=== PATIENT | male | born 1975 ===

== ENCOUNTER 2017-12-23 20:11 | Emergency (ER) | payer OTHER ==
[~2017-12-23] VITALS: Ht 180.3 cm; Wt 95.3 kg
[2017-12-23 20:26] VITALS: BP 155/96
[2017-12-23] MEDS ORDERED: VALTREX1000 MG PO (21:01)
--- NOTE | 2017-12-23 21:02 | ED SKIN/ALLERGY COMPLAINT ---
History of Present Illness General Chief Complaint: General Adult Stated Complaint: PT PAIN IN THE LIP, Source: patient Exam Limitations: no limitations Vital Signs & Intake/Output Vital Signs & Intake/Output Vital Signs Date Time Temp Pulse Resp B/P B/P Pulse O2 O2 Flow FiO2 Mean Ox Delivery Rate 12/23 2025 96.1 110 18 155/96 98 Room Air ED Intake and Output 12/24 0000 12/23 1200 Intake Total 0 Output Total Balance 0 Intake, Oral 0 Patient 210 lb Weight Weight Estimated Measurement Method Allergies Coded Allergies: silver (Mild, HIVES, RASH 12/23/17) Reconcile Medications Valacyclovir HCl (Valtrex) 1,000 MG TABLET 1 TAB PO DAILY herpes Triage Note: RECEIVED 42 YO MALE C/O DEVELOPING A COLD SORE TO LEFT BOTTOM CORNER OF MOUTH. PT HAD A COLD SORE ONE MONTH AGO. PT VERY CONCERNED BECAUSE HE NEVER HAD A COLD SORE BEFORE AND HE HAS CHILDREN. 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 Triage Nurses Notes Reviewed? yes Onset: Gradual Duration: week(s): Timing: recent history Severity: moderate Location: lip HPI: 42yo male presents to ED complaining of "cold sores" on his lips. Patient states that 3 weeks ago he had a painful lesion to his left lower lip. Patient was seen in a walk-in and told that he had a cold sore and was put on Valtrex. Patient states that this is his first ever and was unsure of how he could've gotten the infection. He is very worried that it was related to counting money. Patient states that a few days ago he dropped a second lesion in the same place as well as a lesion to the upper lip. Patient states that lesions were crusting however he picked off the scabs. No active drainage. Patient states that during his first episode with the cold sore he also was experiencing fever and malaise. The patient is monogamous with his for over 8 years, no known herpes exposure. He denies sore throat, cough, congestion, dyspnea, vomiting. (Candy RENTERIA,Lizet Salcedo) Past History Travel History Traveled to [place] past 21 day No Medical History Any Pertinent Medical History? none Neurological: NONE EENT: NONE Cardiovascular: NONE Respiratory: NONE Gastrointestinal: NONE Hepatic: NONE Renal: NONE Musculoskeletal: NONE Psychiatric: NONE Endocrine: NONE Blood Disorders: NONE Cancer(s): NONE Surgical History Surgical History: non-contributory Psychosocial History What is your primary language Maltese Tobacco Use: Quit >30 days ago Family History Hx Contributory? No (Lizet Ellison) Review of Systems Review of Systems Constitutional: Reports: see HPI. EENTM: Reports: see HPI. Respiratory: Reports: no symptoms. Cardiovascular: Reports: no symptoms. GI: Reports: no symptoms. Genitourinary: Reports: no symptoms. Musculoskeletal: Reports: no symptoms. Skin: Reports: see HPI. Neurological/Psychological: Reports: no symptoms. Hematologic/Endocrine: Reports: no symptoms. Immunologic/Allergic: Reports: no symptoms. All Other Systems: Reviewed and Negative (Lizet Ellison) Physical Exam Physical Exam General Appearance: well developed/nourished, no apparent distress, alert, awake , anxious Head: atraumatic, normal appearance Eyes: Bilateral: normal appearance. Ears, Nose, Throat: normal pharynx, hearing grossly normal, two 0.3mm lesions on lips, no vesicles, no ulcerations, no active bleeding or drainage Neck: normal inspection, supple, full range of motion Respiratory: no respiratory distress Back: normal inspection, normal range of motion Extremities: normal inspection, normal range of motion Neurologic/Psych: awake, alert, oriented x 3 Skin: intact, normal color, warm/dry (Lizet Ellison) Progress Differential Diagnosis: abscess/cellulitis, allergic reaction, angioedema, contact dermatitis, shingles, herpes simplex Plan of Care: Patient's lesions may be consistent with oral herpes however no vesicles or ulcerations were seen at this time. Patient's history sounds consistent with oral herpes and patient was started on Valtrex. Patient is worried about future outbreaks. Patient to begin lip moisturizer and follow-up with primary care doctor. Patient informed that if he has further outbreaks he may require prophylactic Valtrex for prevention. Patient informed that blood testing for herpes is not an accurate diagnostic tool as >90% of [place] population will test positive for herpes even if they do not experience outbreaks. Patient understands and agrees with the plan of care. (Lizet Ellison) Departure Departure Disposition: HOME OR SELF CARE Condition: Stable Clinical Impression Primary Impression: Lesion of lip Referrals: Gin Erazo APRN (PCP/Family) Additional Instructions: Begin valtrex as prescribed. Also apply chap stick to prevent dryness. If you have recurrent outbreaks follow-up with her primary care doctor for possible prophylactic valtrex. Return with worsening symptoms or other concerns. Please go over all results of today's visit with your primary care doctor. Contact your primary care doctor to let them know you were here in the emergency room. There may be nonspecific findings which may not be related to your visit today here in the emergency room but may require further evaluation and chronic monitoring by your primary care doctor. If you had a laceration today the chance of foreign body always remains. You should follow-up with your primary care doctor for recheck in 3-5 days for a wound check. If you had an x-ray done there is a chance that a fracture could have been missed on initial read and you should follow-up with your primary care doctor for repeat x-rays if symptoms persist. If your blood pressure was elevated here in the emergency room please have rechecked by [facility] primary care doctor within the next 48. If you were prescribed a narcotic here in the emergency room or any type of controlled substances you're not allowed to drive while taking this medication or operate any type of heavy machinery. Narcotics can make you feel lightheaded dizziness nausea and can cause constipation. You may need to pickling solution maker a stool softener. Thank you for choosing [facility] emergency room. Please return to the emergency room immediately if you have any other concerns worsening of symptoms. Departure Forms: Customer Survey General Discharge Information Prescriptions: Current Visit Scripts Valacyclovir HCl (Valtrex) 1 TAB PO DAILY #5 TAB (Candy RENTERIA,Lizet Salcedo) PA/EQUIPMENT ENGINEER Co-Sign Statement Statement: ED Attending supervision documentation- [] I saw and evaluated the patient. I have also reviewed all the pertinent lab results and diagnostic results. I agree with the findings and the plan of care as documented in the PA's/EQUIPMENT ENGINEER's documentation. [X] I have reviewed the ED Record and agree with the PA's/EQUIPMENT ENGINEER's documentation. [] Additions or exceptions (if any) to the PAs/EQUIPMENT ENGINEER's note and plan are summarized below: [] (Kevin Desir DO
== END 2017-12-23 21:08 ==
LOC: ERH 20:11
DX: K13.0 Diseases of lips (principal)